=== PATIENT | female | born 1980 | race Caucasian/White ===

== ENCOUNTER → 2018-03-14 | Outpatient (CLI) | payer OTHER ==
[2018-03-14 16:37] LABS: CONTROL LINE HCG INT CTR LINE PRESENT; HCG, SERUM QUALITATIVE POSITIVE (NEGATIVE)
[2018-03-14 16:50] LABS: HCG, SERUM QUANTITATIVE 4652 MIU/ML
== END ==
LOC: M LRY 10:53
DX: N92.6 Irregular menstruation, unspecified (principal)
CPT/HCPCS: 84703

== ENCOUNTER → 2018-03-15 | Outpatient (CLI) | payer OTHER ==
[2018-03-15 18:55] LABS: HEMATOCRIT 39.2 % (36.0-47.0); HEMOGLOBIN 13.2 g/dl (12.0-15.5); MEAN CORPUSCULAR HEMOGLOBIN 30.8 pg (27.0-33.0); MEAN CORPUSCULAR HGB CONC 33.7 g/dl (32.0-36.5); MEAN CORPUSCULAR VOLUME 91.4 fl (80.0-96.0); PLATELET COUNT, AUTOMATED 241 10^3/uL (150-450); RED BLOOD COUNT 4.29 10^6/uL (4.00-5.40); RED CELL DISTRIBUTION WIDTH 12.2 % (11.5-14.5); WHITE BLOOD COUNT 6.4 10^3/uL (4.0-10.0)
== END ==
LOC: M LRY 14:38
DX: O26.30 Retained intrauterine contraceptive device in pregnancy, unspecified trimester (principal); Z3A.01 Less than 8 weeks gestation of pregnancy; Z97.5 Presence of (intrauterine) contraceptive device
CPT/HCPCS: 85027

== ENCOUNTER → 2018-03-16 | Outpatient (CLI) | payer OTHER ==
[2018-03-17 16:26] LABS: HCG, SERUM QUANTITATIVE 8361 MIU/ML
== END ==
LOC: M LRY 16:10
DX: O26.30 Retained intrauterine contraceptive device in pregnancy, unspecified trimester (principal)
CPT/HCPCS: 84702